=== PATIENT | male | born 1975 | race Caucasian/White ===

== ENCOUNTER 2020-05-05 19:52 | Emergency (ER) | payer OTHER ==
[~2020-05-05] VITALS: Ht 170.2 cm; Wt 86.2 kg
[2020-05-05] MEDS ORDERED: IBUPROFEN 600600 M1 PO (20:49)
[2020-05-05] MEDS ORDERED: APAP W/CODEINE1 TA2 PO (20:49)
[2020-05-05 20:57] VITALS: BP 146/92
== END 2020-05-05 20:57 | disposition home or self-care (01) ==
LOC: M.ERS 19:52
DX: M25.532 Pain in left wrist (principal); Z88.1 Allergy status to other antibiotic agents

== ENCOUNTER 2020-06-01 18:55 | Emergency (ER) | payer OTHER ==
[~2020-06-01] VITALS: Ht 167.6 cm; Wt 97.1 kg
[~2020-06-01 18:55] MED LIST: APAP W/CODEINE1 TA2 PO; IBUPROFEN 600600 M1 PO
[2020-06-01 20:20] LABS: ABSOLUTE LYMPHOCYTES 0.3 thou/uL (0.8-5.3); ABSOLUTE MONOCYTES 0.7 thou/uL (0.0-1.2); ABSOLUTE NEUTROPHILS 4.1 thou/uL (1.6-8.1); BASOPHILS 0.6 %; HEMATOCRIT 43.5 % (42.0-52.0); HEMOGLOBIN 14.7 gm/dL (14.0-18.0); LYMPHOCYTES 5.6 %; MCH 30.7 pg (26.0-34.0); MCHC 33.7 g/dL (28.0-37.0); MCV 91.1 fL (80.0-100.0); MONOCYTES 14.2 %; MPV 9.9 fl. (7.2-11.1); NUCLEATED RBCS 0 /100WBC; PLATELET COUNT* 224 thou/uL (150-400); POLYS 79.6 %; RBC 4.77 mil/uL (4.50-6.00); RDW-CV 13.7 % (10.5-14.5); WBC 5.1 thou/uL (4.0-11.0)
[2020-06-01 20:26] LABS: POTASSIUM 3.3 mmol/L (3.5-5.1)
[2020-06-01] MEDS ORDERED: PROAIR HFA8.5 GM INH (22:14)
[2020-06-01] MEDS ORDERED: ALBUTEROL2.5 MG/31 INH (22:14)
[2020-06-01] MEDS ORDERED: DECADRON6 MG PO (22:14)
[2020-06-01 22:37] VITALS: BP 118/72
--- NOTE | 2020-06-04 10:48 | EKG ---
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[facility] : 1975 Requested By: Melody Stokes Order Number: [id number] MD: Addison Rosas Measurements Intervals [place] Rate: 121 P: 38 CT: 142 QRS: -27 QRSD: 88 T: 5 QT: 307 QTc: 436 Interpretive Statements Sinus tachycardia Abnormal R-wave progression, late transition Inferior infarct, old Baseline wander in lead(s) V6 No previous ECG available for comparison Electronically Signed On 06-04-2020 10:48:18 CDT by Addison Rosas [email or web address] <ELECTRONICALLY SIGNED> By: Addison Rosas MD, FACC 06/04/20 1048 2030 29 Addison Rosas MD, FAC /EPI
== END 2020-06-01 22:37 | disposition home or self-care (01) ==
LOC: M.ERS 18:55
PROVIDERS: Emergency Medicine
DX: U07.1 COVID-19 (principal); F17.210 Nicotine dependence, cigarettes, uncomplicated; Z88.1 Allergy status to other antibiotic agents

== ENCOUNTER 2020-06-07 16:10 | Inpatient (IN) | payer OTHER ==
[~2020-06-07] VITALS: Ht 167.6 cm; Wt 87.8 kg
--- NOTE | ~2020-06-07 | EEG ---
[address] [address] EEG STUDY REPORT Name: JOSE WALTON Hayden Room: [address] IN M.R.#: [id number] Admission: 06/07/20 Attend Phys: Jovita Sandoval Discharge: Date of : 75 Report #: [id number] THIS REPORT FOR: cc: FAM - No family physician/PCP FAM - No family physician/PCP Sherman Bradley MD ~ DOC #: [id number] Sherman Bradley MD DATE OF SERVICE: 06/08/2020 This patient is being evaluated for the possibility of seizure. EEG is done by placing the electrode by standard 10-20 system of electrode placement. Both referential and sequential montages were used for recording. Background activity in this patient's EEG is about 10 Hz and 30 microvolts. Large portion of this EEG was obtained when the patient was asleep and associated with bilateral slowing, vertex sharp waves. Photic stimulation is unremarkable. Throughout the record, no active epileptiform activity was noticed. IMPRESSION: This patient's EEG is unremarkable and does not demonstrate any active epileptiform activity. Sherman Bradley MD PK/ANI By: [id number] Bradley MD /nt
--- NOTE | ~2020-06-07 | CON ---
[address] [address] CONSULTATION Name: SEBASTIÁNJOSE ENNIS Hayden Room: [address] IN M.R.#: [id number] Admission: 06/07/20 Attend Phys: Jovita Sandoval Discharge: Date of : 75 Report #: [id number] THIS REPORT FOR: cc: FAM - No family physician/PCP FAM - No family physician/PCP Sherman Bradley MD ~ DOC #: [id number] Sherman Bradley MD DATE OF CONSULTATION: 06/08/2020 HISTORY OF PRESENT ILLNESS: This is a 44-year-old male patient who was evaluated by me for altered mental status. I had talked to the emergency room physician and saw him briefly and saw him again today and talked to the hospitalist, Dr. Peña. The patient said he had altered mental status yesterday, but that has resolved. He said he is not confused anymore and he is doing fine. He feels back to his baseline and his main problem is COVID infection. REVIEW OF SYSTEMS: Positive for COVID infection. He had some wrist pain. His history is somewhat poor and on many points evasive, but looks like a 14-point review of system is mostly unremarkable. PAST MEDICAL HISTORY: Positive for being COVID positive. FAMILY HISTORY: Unremarkable. SOCIAL HISTORY: He says he smokes, but did not quantify any further. He says he does electric cigarette, often he does it, he did not go into that even when I asked him to. He does not drink alcohol. PHYSICAL EXAMINATION: GENERAL: He is alert. NEUROLOGIC: He is responsive. His can follow simple commands. He knows what month it is, who the president is, who was one before. Cranial nerve examination 2-12 is unremarkable. Neuromuscular examination is unremarkable. He has no meningeal signs. VITAL SIGNS: Blood pressure is 124/77, respirations 14, pulse is 59. LABORATORY DATA: White count is normal. Potassium is a traced low at 3.4, magnesium was not checked. He did have a CTA of the head and neck with perfusion and they were all unremarkable. IMPRESSION AND RECOMMENDATIONS: I am not sure what the etiology of the patient's transient confusion was. This is also part of the history he is somewhat evasive, especially on electronic cigarette. [place] [address] CONSULTATION Name: JOSE WALTON Room: [address] IN [facility]#: [id number] Admission: 06/07/20 Attend Phys: Jovita Sandoval Discharge: Date of : 75 Report #: [id number] proceed with MRI to exclude any other pathology and do some further workup in that regard. He declined any MRI or any further workup in that regard. He is competent to make his decisions and I have talked to him in detail the reason I want to do the test and consequences of not doing it. He does not want to proceed with any further neurological testing like MRIs, etc. and he said he will let me know if he changes his mind or if he has any further spell. In these circumstances, we will sign off and please let us know if there is any question or followup needed. Thank you very much for this referral. Sherman Bradley MD PK/VIS By: 1306 [id number] Bradley MD /nt
[~2020-06-07 16:10] MED LIST changes: +ALBUTEROL2.5 MG/31 INH; +DECADRON6 MG PO; +PROAIR HFA8.5 GM INH
[2020-06-07 16:28] VITALS: BP 116/76
[2020-06-07 17:17] LABS: ABSOLUTE LYMPHOCYTES 0.6 thou/uL (0.8-5.3); ABSOLUTE MONOCYTES 0.5 thou/uL (0.0-1.2); ABSOLUTE NEUTROPHILS 5.8 thou/uL (1.6-8.1); BASOPHILS 0.2 %; HEMATOCRIT 43.2 % (42.0-52.0); HEMOGLOBIN 14.6 gm/dL (14.0-18.0); LYMPHOCYTES 8.9 %; MCH 30.8 pg (26.0-34.0); MCHC 33.9 g/dL (28.0-37.0); MCV 90.9 fL (80.0-100.0); MONOCYTES 7.1 %; MPV 9.5 fl. (7.2-11.1); NUCLEATED RBCS 0 /100WBC; PLATELET COUNT* 217 thou/uL (150-400); POLYS 83.8 %; RBC 4.76 mil/uL (4.50-6.00); RDW-CV 13.9 % (10.5-14.5); WBC 6.9 thou/uL (4.0-11.0)
[2020-06-07 17:24] LABS: CALCIUM 8.3 mg/dL (8.5-10.1); CREATININE 1.2 mg/dL (0.6-1.3); POTASSIUM 3.4 mmol/L (3.5-5.1)
[2020-06-07 17:28] LABS: PROTIME 10.5 Seconds (9.20-11.50)
[2020-06-07 17:29] LABS: ALBUMIN 3.3 g/dL (3.4-5.0); TOTAL BILIRUBIN 0.4 mg/dL (<0.1-1.0)
[2020-06-07 18:23] LABS: ESR (SEDRATE) 20 mm/hr (0-15)
--- NOTE | 2020-06-07 19:11 | NUR ---
PATIENT'S FATHER [phone]
[2020-06-07 21:00] VITALS: BP 119/70
[2020-06-07 21:03] VITALS: BP 105/63
[2020-06-07 22:00] VITALS: BP 98/64
[2020-06-07 23:00] VITALS: BP 104/61
[2020-06-08] VITALS (9 sets, daily range): BP systolic 89–124; BP diastolic 46–80
--- NOTE | 2020-06-08 08:52 | NUR ---
Infection [facility] on 06/01/20.
[2020-06-08 10:59] LABS: URINE BILIRUBIN NEGATIVE (Negative); URINE BLOOD TRACE (Negative); URINE CLARITY CLEAR; URINE COLOR YELLOW; URINE GLUCOSE-RANDOM NEGATIVE (Negative); URINE KETONES NEGATIVE (Negative); URINE LEUKOCYTES-REFLEX NEGATIVE (Negative); URINE NITRITE-REFLEX NEGATIVE (Negative); URINE PROTEIN NEGATIVE (Negative); URINE UROBILINOGEN 0.2 E.U./dl (0.2-1.0)
--- NOTE | 2020-06-08 11:01 | EKG ---
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
[2020-06-08 11:07] LABS: AMP/METHAMP Negative (Negative); BARBITURATES Negative (Negative); BENZODIAZEPINES Negative (Negative); COCAINE Negative (Negative); METHADONE Negative (Negative); OPIATES Negative (Negative); PCP Negative (Negative); THC Negative (Negative)
--- NOTE | 2020-06-08 15:40 | NUR ---
Spoke to patient on the phone due to COVID-19 dx. Introduced role of CM. Patient admitted from PCP office yesterday. Patient woke up feeling disoriented so he went to see his PCP. Per PCP, he was directed to the ED for AMS that resolved upon arrival. Neuro and pulm consulted. Patient does not remember the name of the PCP because he went to his dad's PCP since he didn't have one prior to yesterday. Patient currently on RA and lungs sound clear per nursing. Patient currently uses e-cigarettes and vapes. No DPOA in place at this time and patient not interested in completing paperwork. Patient currently resides at home alone and his support systems are his dad (Ata ParikhItteoo-[phone]) and a co-worker (Alesha Parr). Patient was independent with ADLs prior to admission and was driving and working from home. No hx of DME, BH services, dialysis or infusion therapy. The current plan of care per Dr. Laws is possible dc tomororw if consults sign off and patient continues to do well overnight. Nursing made aware. No current dc needs noted at this time. Nurse to review COVID-19 instructions at tn.
--- NOTE | 2020-06-08 17:18 | NUR ---
AT 1700 PT CALLED THIS RN TO HIS ROOM STATING HE FELT FEVERISH. THIS RN CHECKED HIS AXILLARY TEMP HE WAS DRINKING AN ICED BEVERAGE, TEMP AT THIS TIME WAS 99.4. PT CALLED THIS RN INTO HIS ROOM 15 MINUTES LATER ASKING FOR TEMP TO BE CHECKED AGAIN, AXILARRY TEMP WITH THE SAME THERMOMETER READ 102.1. TYLENOL PROVIDED. ROOM IS VERY WARM AND PT HAS BEEN WRAPPED IN A BLANKET THIS SHIFT. EDUCATION HAS BEEN PROVIDED MULTIPLE TIMES REGARDING THE CONNECTION BETWEEN BUNDLING UP WITH A BLANKET IN A WARM ROOM AND FEVER INCREASING. PT REFUSES TO REMOVE BLANKET AT THIS TIME. THIS RN CONTACTED [employer] TO REQUEST PTS ROOM TEMP BE DECREASED ROOM IS VERY WARM AND PTS TEMP IS INCREASED. PEANUT PICKER PROVIDED A BEDSIDE FAN, PT WILL NOT ALLOW FAN TO BLOW TOWARDS HIM. FAN PLACED IN AN UPWARD MOTION TO FACILITATE A COOLER ATMOSPHERE AROUND PT. WILL CONTINUE TO MONITOR.
[2020-06-08 19:27] LABS: ABSOLUTE LYMPHOCYTES 0.8 thou/uL (0.8-5.3); ABSOLUTE MONOCYTES 0.4 thou/uL (0.0-1.2); ABSOLUTE NEUTROPHILS 6.2 thou/uL (1.6-8.1); BASOPHILS 0.5 %; HEMATOCRIT 42.7 % (42.0-52.0); HEMOGLOBIN 14.4 gm/dL (14.0-18.0); LYMPHOCYTES 10.9 %; MCH 30.6 pg (26.0-34.0); MCHC 33.7 g/dL (28.0-37.0); MCV 90.8 fL (80.0-100.0); MONOCYTES 5.6 %; MPV 8.8 fl. (7.2-11.1); NUCLEATED RBCS 0 /100WBC; PLATELET COUNT* 227 thou/uL (150-400); RBC 4.71 mil/uL (4.50-6.00); RDW-CV 14.1 % (10.5-14.5); WBC 7.4 thou/uL (4.0-11.0)
[2020-06-08 19:37] LABS: CALCIUM 8.2 mg/dL (8.5-10.1); CREATININE 0.9 mg/dL (0.6-1.3); MAGNESIUM 1.9 mg/dL (1.8-2.4); POTASSIUM 3.6 mmol/L (3.5-5.1)
[2020-06-09 03:53] VITALS: BP 109/76
[2020-06-09 04:36] LABS: ABSOLUTE MONOCYTES 0.4 thou/uL (0.0-1.2); ABSOLUTE NEUTROPHILS 5.8 thou/uL (1.6-8.1); BASOPHILS 0.2 %; HEMATOCRIT 42.5 % (42.0-52.0); HEMOGLOBIN 14.1 gm/dL (14.0-18.0); LYMPHOCYTES 13.7 %; MCH 30.4 pg (26.0-34.0); MCHC 33.3 g/dL (28.0-37.0); MCV 91.2 fL (80.0-100.0); MONOCYTES 5.5 %; MPV 8.8 fl. (7.2-11.1); NUCLEATED RBCS 0 /100WBC; PLATELET COUNT* 217 thou/uL (150-400); POLYS 80.6 %; RBC 4.66 mil/uL (4.50-6.00); RDW-CV 13.9 % (10.5-14.5); WBC 7.2 thou/uL (4.0-11.0)
[2020-06-09 04:59] LABS: CALCIUM 8.1 mg/dL (8.5-10.1); CREATININE 1.2 mg/dL (0.6-1.3); POTASSIUM 3.4 mmol/L (3.5-5.1)
[2020-06-09 08:22] LABS: BE -0.1 mmol/L (-2 to +3); PCO2 31.1 mmHg (35.0-45.0); pH 7.475 (7.340-7.450)
[2020-06-09 15:34] VITALS: BP 115/75
[2020-06-10 20:00] VITALS: BP 123/76
[2020-06-10 23:40] VITALS: BP 96/59
[2020-06-11 03:52] VITALS: BP 112/73
[2020-06-11 12:00] VITALS: BP 108/65
--- NOTE | 2020-06-11 12:49 | NUR ---
Doing better. On 4L o2. Possible dc in 1-2 days pending stabalization. Covid positive.
[2020-06-11 15:53] LABS: ABSOLUTE LYMPHOCYTES 0.5 thou/uL (0.8-5.3); ABSOLUTE MONOCYTES 0.3 thou/uL (0.0-1.2); ABSOLUTE NEUTROPHILS 5.9 thou/uL (1.6-8.1); BASOPHILS 0.1 %; HEMATOCRIT 41.8 % (42.0-52.0); HEMOGLOBIN 14.3 gm/dL (14.0-18.0); LYMPHOCYTES 7.8 %; MCH 30.9 pg (26.0-34.0); MCHC 34.1 g/dL (28.0-37.0); MCV 90.5 fL (80.0-100.0); MONOCYTES 3.8 %; MPV 8.6 fl. (7.2-11.1); NUCLEATED RBCS 0 /100WBC; POLYS 88.3 %; RBC 4.62 mil/uL (4.50-6.00); RDW-CV 14.1 % (10.5-14.5); WBC 6.6 thou/uL (4.0-11.0)
[2020-06-11 15:56] LABS: PLATELET COUNT* 310 thou/uL (150-400)
[2020-06-11 16:00] VITALS: BP 122/80
[2020-06-11 16:07] LABS: ALBUMIN 2.7 g/dL (3.4-5.0); CALCIUM 8.3 mg/dL (8.5-10.1); CREATININE 0.9 mg/dL (0.6-1.3); MAGNESIUM 2.2 mg/dL (1.8-2.4); POTASSIUM 4.4 mmol/L (3.5-5.1); TOTAL BILIRUBIN 0.3 mg/dL (<0.1-1.0); TOTAL PROTEIN 6.5 g/dL (6.4-8.2)
[2020-06-11 20:00] VITALS: BP 126/66
[2020-06-12] VITALS (7 sets, daily range): BP systolic 106–121; BP diastolic 67–81
[2020-06-12 06:34] LABS: ABSOLUTE LYMPHOCYTES 1.2 thou/uL (0.8-5.3); ABSOLUTE MONOCYTES 0.5 thou/uL (0.0-1.2); ABSOLUTE NEUTROPHILS 5.1 thou/uL (1.6-8.1); BASOPHILS 0.1 %; EOSINOPHILS 0.1 %; HEMOGLOBIN 13.5 gm/dL (14.0-18.0); LYMPHOCYTES 18.1 %; MCH 29.7 pg (26.0-34.0); MCHC 32.8 g/dL (28.0-37.0); MCV 90.4 fL (80.0-100.0); MONOCYTES 7.5 %; MPV 8.6 fl. (7.2-11.1); NUCLEATED RBCS 0 /100WBC; PLATELET COUNT* 321 thou/uL (150-400); POLYS 74.2 %; RBC 4.54 mil/uL (4.50-6.00); RDW-CV 14.2 % (10.5-14.5); WBC 6.9 thou/uL (4.0-11.0)
[2020-06-12 06:40] LABS: ALBUMIN 2.7 g/dL (3.4-5.0); CALCIUM 8.4 mg/dL (8.5-10.1); CREATININE 0.9 mg/dL (0.6-1.3); POTASSIUM 4.1 mmol/L (3.5-5.1); TOTAL BILIRUBIN 0.5 mg/dL (<0.1-1.0); TOTAL PROTEIN 6.5 g/dL (6.4-8.2)
--- NOTE | 2020-06-12 07:38 | CON ---
[address] [address] CONSULTATION Name: JOSE WALTON Room: [address] IN .R.#: [id number] Admission: 06/07/20 Attend Phys: Jovita Sandoval Discharge: Date of : 75 Report #: [id number] THIS REPORT FOR: cc: FAM - No family physician/PCP FAM - No family physician/PCP Tommy Robin MD ~ DOC #: [id number] Tommy Robin MD DATE OF CONSULTATION: 06/08/2020 CONSULT REQUESTED BY: Jovan Peña MD INDICATION FOR CONSULTATION: COVID-19. HISTORY OF PRESENT ILLNESS: A 44-year-old gentleman who has an extensive history of smoking. He states that he discontinued his regular cigarettes and over the last few months, has only uses electronic cigarettes instead. He does have a CPAP at home for obstructive sleep apnea. He states that he has used inhalers at home in the past; however, he is not aware of a diagnosis of COPD or bronchial asthma. The patient reports having had a positive test for COVID-19 about a week ago. There is a previous record of him being prescribed dexamethasone on 06/01/2020, so the patient does not recall exactly what medications he took, but he may have taken dexamethasone recently as an outpatient. The patient now presented to this hospital with an acute confusional state. The patient is also reported to have had a high-grade fever. The patient was therefore admitted. He has had a CTA head performed. He has also received IV fluids. At the time of my evaluation, the patient is alert, awake and oriented. He was on room air, saturating around 95%. He was afebrile and while his blood pressure was on the lower side, it was around 104/60, in fact was well perfused with this and sitting comfortably in bed. He does report some increase in shortness of breath. He has also had a cough. He reports having brought up small amounts of sputum. He does not know the color of the sputum. He does not have swelling of lower extremities or calf pain. He has had some disturbed sleep at night as well as sleepiness during the day. These complaints are at baseline. The patient at this time was not complaining of any upper respiratory complaints. REVIEW OF SYSTEMS: For 12 points is negative except as mentioned above. PAST MEDICAL HISTORY: Obstructive sleep apnea, he has a CPAP at home; obstructive lung disease, he has used inhalers in the past, I do not have details available; vitiligo; alopecia; skin graft to the right palm. SOCIAL HISTORY: He has an extensive history of smoking in the past[place] [address] CONSULTATION Name: JOSE WALTON Room: [address] IN [facility]#: [id number] Admission: 06/07/20 Attend Phys: Jovita Sandoval Discharge: Date of : 75 Report #: [id number] discontinued regular cigarettes and currently uses electronic cigarettes instead. No known history of heavy alcohol use or illegal drug use. CURRENT MEDICATION: List in [facility] reviewed. Home medication in [facility] reviewed. ALLERGIES: HE REPORTS HAVING HAD AN ALLERGY OR ADVERSE REACTION TO CEPHALEXIN. FAMILY HISTORY: No pertinent family history. PHYSICAL EXAMINATION: GENERAL: He was alert, awake and oriented. VITAL SIGNS: Had a pulse of around 90 and a blood pressure of 104/60. He was saturation 95%. He was not on supplemental oxygen. Respiratory rate was around 14-16. He was afebrile with a temperature of 36.8. There is mild elevation in body mass index to 33.2. HEENT: Head is normocephalic and atraumatic. Pupils are equal and reactive. The mucous membranes are moist. NECK: Does not show raised JVP, asymmetry, mass or lymph nodes. CHEST: Symmetrical expansion on inspection and palpation. On auscultation, chest is clear. HEART: Regular. There is no murmur. ABDOMEN: Soft and nontender. LOWER EXTREMITIES: Show no edema and no calf tenderness. SKIN: Dry and intact. NEUROLOGIC: Moves all extremities bilaterally equally and spontaneously with no focal deficit identified. LABORATORY DATA: Lab work from yesterday is in [facility]. This is reviewed. I have ordered repeat labs now, these are pending. DIAGNOSTIC DATA: CTA head report is in [facility]. This is reviewed. I reviewed the upper chest films, which were incidentally obtained during this study and this was discussed as below. The chest x-rays are in [facility]. These reports as well as films reviewed. Lab work in [facility] reviewed. ASSESSMENT AND PLAN: 1. COVID-19. I initially considered as to whether we should start remdesivir, possibly in combination with dexamethasone. I have discussed this with the patient. The patient; however, states that he wants medications, which are definitely indicated only and does not want any treatment, which could be considered experimental. Based on this, I decided to hold off on these for now. [address] [address] CONSULTATION Name: JOSE WALTON Room: [address] IN [facility]#: [id number] Admission: 06/07/20 Attend Phys: Jovita Sandoval Discharge: Date of : 75 Report #: [id number] In case the patient's condition deteriorates in particular if there is any need for supplemental oxygen, then I would recommend having a very low threshold of starting dexamethasone and remdesivir. There is some recent data from the [place] that inhaled corticosteroids are of benefit in patients with COVID-19 without need for supplemental oxygen and this is now recommended in the [place] on a case by case basis. Based on this, I went ahead and started the patient on budesonide. 2. Pulmonary infiltrates. These are fairly subtle, in fact, they are difficult to see on the chest x-rays; however, on the CTA head, the upper chest is incidentally imaged and this does show infiltrates consistent with COVID-19. Certainly secondary bacterial infection will also be possible. The patient currently is on doxycycline and I agree with the same. If it is feasible, then recommend obtaining a sputum culture. Would also go ahead and obtain a nasal swab for MRSA. 3. Obstructive sleep apnea. We will place him on his home CPAP if here. If it is not, then we will use one of our BiPAPs. 4. Chronic obstructive pulmonary disease. The patient does not have a history of documented chronic obstructive pulmonary disease on the records, but he says he has used inhalers in the past. He also states that he has a history of smoking as above. I am giving him budesonide via nebulizer. We will also give him Brovana and p.r.n. albuterol. 5. Atelectasis prevention. I recommend avoiding sleeping supine. Sleep on sides if sleeping prone is difficult with the CPAP or BiPAP in place. When not on CPAP or BiPAP, I suggest considering prone positioning. I also recommend out of bed to chair. 6. Acute confusional state, likely secondary to COVID-19. No other obvious etiology at this time. 7. Hypokalemia/fluid and electrolytes. Despite the blood pressure being on the lower side, he appears to be well perfused at this time. Therefore, for now, I discontinued IV fluids. His last potassium was 3.4. He likely needs potassium replacement. May also need magnesium replacement. We will go ahead and repeat labs now and if indicated, then we will replace electrolytes per protocol. 8. Evaluation for thromboembolism. Overall, suspicion is low at this time. I did order a D-dimer. If this is elevated and the patient's respiratory status starts to improve, then may consider further workup later. 9. Deep venous thrombosis prophylaxis. He is on Lovenox, will agree with the same. Thanks for this consultation. Tommy Robin MD AP/[place] [address] CONSULTATION Name: JOSE WALTON Room: [address] IN M.R.#: [id number] Admission: 06/07/20 Attend Phys: Jvoita Sandoval Discharge: Date of : 75 Report #: [id number] <ELECTRONICALLY SIGNED> By: Tommy Robin MD 06/12/20 0738 1721 [id number] Robin MD /nt
--- NOTE | 2020-06-12 12:13 | NUR ---
Pt remains anxious. Weaned down to 3L, will need ex ox at dc if continuing to require o2. Anticipate dc in a few days.
[2020-06-13 04:03] VITALS: BP 103/55
[2020-06-13 05:06] LABS: ABSOLUTE BASOPHILS 0.1 thou/uL (0.0-0.2); ABSOLUTE LYMPHOCYTES 1.5 thou/uL (0.8-5.3); ABSOLUTE MONOCYTES 0.6 thou/uL (0.0-1.2); BASOPHILS 0.7 %; EOSINOPHILS 0.3 %; HEMATOCRIT 41.8 % (42.0-52.0); HEMOGLOBIN 13.9 gm/dL (14.0-18.0); LYMPHOCYTES 18.4 %; MCHC 33.2 g/dL (28.0-37.0); MCV 90.2 fL (80.0-100.0); MONOCYTES 7.8 %; MPV 8.3 fl. (7.2-11.1); NUCLEATED RBCS 0 /100WBC; PLATELET COUNT* 313 thou/uL (150-400); POLYS 72.8 %; RBC 4.63 mil/uL (4.50-6.00); RDW-CV 13.8 % (10.5-14.5); WBC 8.3 thou/uL (4.0-11.0)
[2020-06-13 05:18] LABS: ALBUMIN 2.9 g/dL (3.4-5.0); CALCIUM 8.5 mg/dL (8.5-10.1); CREATININE 0.9 mg/dL (0.6-1.3); MAGNESIUM 2.2 mg/dL (1.8-2.4); TOTAL BILIRUBIN 0.5 mg/dL (<0.1-1.0); TOTAL PROTEIN 6.6 g/dL (6.4-8.2)
[2020-06-13 07:55] VITALS: BP 119/66
[2020-06-13 12:00] VITALS: BP 112/62
--- NOTE | 2020-06-13 14:21 | NUR ---
Nutrition: Pt admitted COVID+. He is on 4L O2, MICKEY/CPAP at [facility]. Albumin 2.9, prealb 21.4. Regular diet. Per TERRA Lyman, pt is eating well. Wt: 203#. Meds: remdesivir, steroids. Appears nutritionally stable at this time. Low risk.
--- NOTE | 2020-06-13 14:22 | NUR ---
Pt on RA. Anticipate dc to home tomorrow.
[2020-06-13 16:00] VITALS: BP 109/69
--- NOTE | 2020-06-13 16:56 | NUR ---
PATIENT RESTING IN BED. PATIENT IS UP AD ASTRID IN ROOM. PATIENT WEANED TO ROOM AIR THIS AM, O2 SATS REMAIN 94-95% ON ROOM AIR. PATIENT HAS CPAP WHILE SLEEPING. PATIENT DENIES ANY PAIN. PATIENT HAS DENIED ANY TROUBLE BREATHING TODAY. PATIENT DENIES ANY NEEDS AT THIS TIME. CALL LIGHT WITHIN REACH.
[2020-06-13 19:50] VITALS: BP 110/65
[2020-06-13 23:47] VITALS: BP 109/73
--- NOTE | 2020-06-14 01:46 | NUR ---
ASSUMED CARE OF PT AT 1900. PT IS ALERT AND ORIENTED. VSS. PERRLA. NO COMPLAINTS OF PAIN. PT ISIN SINUS RYRENAM ON THE TELEMETRY. PT IS RESTING COMFORTABLY IN BED. RESPIRATIONS ARE EVEN AND NONLABORED. WILL CONTINUE TO MONITOR PT.
[2020-06-14 03:31] VITALS: BP 107/68
[2020-06-14 04:06] LABS: HEMATOCRIT 43.4 % (42.0-52.0); HEMOGLOBIN 14.3 gm/dL (14.0-18.0); MCH 30.1 pg (26.0-34.0); MCHC 32.9 g/dL (28.0-37.0); MCV 91.6 fL (80.0-100.0); MPV 8.5 fl. (7.2-11.1); RBC 4.73 mil/uL (4.50-6.00); RDW-CV 13.8 % (10.5-14.5); WBC 7.1 thou/uL (4.0-11.0)
[2020-06-14 04:25] LABS: CALCIUM 8.6 mg/dL (8.5-10.1); POTASSIUM 4.3 mmol/L (3.5-5.1)
[2020-06-14 07:35] VITALS: BP 113/76
[2020-06-14] MEDS ORDERED: LEVOFLOXACIN500 MG PO (09:50)
[2020-06-14 11:34] VITALS: BP 113/76
--- NOTE | 2020-06-14 12:15 | NUR ---
Reviewed discharge teaching with patient; verbalized understanding. head screen worker and IV dc'd. Dc'd from unit per WC.
== END 2020-06-14 12:15 | disposition home or self-care (01) | DRG 871 ==
LOC: M.ERS 16:10 → M.TBA-ER 18:07 → M.2W 18:07 → M.ICU 18:07 → M.2W 06-10 17:50
PROVIDERS: Internal Medicine; Internal Medicine Critical Care Medicine; Physician Assistant; ADMIT Internal Medicine; ATTEND Internal Medicine
PROC: XW033E5 Introduction of Remdesivir Anti-infective into Peripheral Vein, Percutaneous Approach, New Technology Group 5 (ICD-10-PCS; principal; 2020-06-09)
PROC: 5A09357 Assistance with Respiratory Ventilation, Less than 24 Consecutive Hours, Continuous Positive Airway Pressure (ICD-10-PCS; principal; 2020-06-09)
PROC: 5A0935A Assistance with Respiratory Ventilation, Less than 24 Consecutive Hours, High Flow/Velocity Cannula (ICD-10-PCS; 2020-06-10)
PROC: 5A0935A Assistance with Respiratory Ventilation, Less than 24 Consecutive Hours, High Flow/Velocity Cannula (ICD-10-PCS; 2020-06-11)
PROC: 5A09357 Assistance with Respiratory Ventilation, Less than 24 Consecutive Hours, Continuous Positive Airway Pressure (ICD-10-PCS; 2020-06-12)
PROC: 5A09357 Assistance with Respiratory Ventilation, Less than 24 Consecutive Hours, Continuous Positive Airway Pressure (ICD-10-PCS; 2020-06-13)
DX: A41.89 Other specified sepsis (principal); U07.1 COVID-19; J96.01 Acute respiratory failure with hypoxia; J12.82 Pneumonia due to coronavirus disease 2019; G93.41 Metabolic encephalopathy; F17.200 Nicotine dependence, unspecified, uncomplicated; G47.33 Obstructive sleep apnea (adult) (pediatric); R41.0 Disorientation, unspecified; Z99.81 Dependence on supplemental oxygen; Z79.899 Other long term (current) drug therapy; Z88.8 Allergy status to other drugs, medicaments and biological substances

== ENCOUNTER 2020-06-25 22:28 | Emergency (ER) | payer OTHER ==
[~2020-06-25] VITALS: Ht 170.2 cm; Wt 92.5 kg
[~2020-06-25 22:28] MED LIST changes: +LEVOFLOXACIN500 MG PO
[2020-06-25] MEDS ORDERED: WELLBUTRIN 75 M75 M1 PO (22:36)
[2020-06-25 23:11] LABS: ABSOLUTE BASOPHILS 0.1 thou/uL (0.0-0.2); ABSOLUTE EOSINOPHILS 0.1 thou/uL (0.0-0.7); ABSOLUTE LYMPHOCYTES 2.1 thou/uL (0.8-5.3); ABSOLUTE MONOCYTES 0.7 thou/uL (0.0-1.2); BASOPHILS 0.9 %; HEMATOCRIT 42.2 % (42.0-52.0); HEMOGLOBIN 14.2 gm/dL (14.0-18.0); MCH 30.9 pg (26.0-34.0); MCHC 33.7 g/dL (28.0-37.0); MCV 91.8 fL (80.0-100.0); MONOCYTES 11.5 %; MPV 9.6 fl. (7.2-11.1); NUCLEATED RBCS 0 /100WBC; PLATELET COUNT* 225 thou/uL (150-400); POLYS 50.6 %; RBC 4.59 mil/uL (4.50-6.00); RDW-CV 13.9 % (10.5-14.5); WBC 5.9 thou/uL (4.0-11.0)
[2020-06-25 23:13] LABS: CALCIUM 8.3 mg/dL (8.5-10.1); POTASSIUM 3.4 mmol/L (3.5-5.1)
[2020-06-25 23:17] LABS: APTT 24.2 Seconds (25.0-31.3); INR 0.9
[2020-06-25 23:18] LABS: ALBUMIN 3.3 g/dL (3.4-5.0); MAGNESIUM 2.2 mg/dL (1.8-2.4); TOTAL BILIRUBIN 0.3 mg/dL (<0.1-1.0); TOTAL PROTEIN 6.7 g/dL (6.4-8.2)
[2020-06-25 23:26] LABS: BE 1.1 mmol/L (-2 to +3); PCO2 34.2 mmHg (35.0-45.0); PO2 88.6 mmHg (75.0-100.0); pH 7.467 (7.340-7.450)
[2020-06-25 23:39] LABS: URINE BILIRUBIN NEGATIVE (Negative); URINE BLOOD NEGATIVE (Negative); URINE CLARITY CLEAR; URINE COLOR YELLOW; URINE GLUCOSE-RANDOM NEGATIVE (Negative); URINE KETONES NEGATIVE (Negative); URINE LEUKOCYTES-REFLEX NEGATIVE (Negative); URINE NITRITE-REFLEX NEGATIVE (Negative); URINE PROTEIN NEGATIVE (Negative); URINE SPECIFIC GRAVITY 1.015 (1.005-1.030); URINE UROBILINOGEN 0.2 E.U./dl (0.2-1.0)
[2020-06-26 01:14] VITALS: BP 115/78
--- NOTE | 2020-06-26 09:41 | EKG ---
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 : 1975 Requested By: Fani Johnston Order Number: [id number] MD: Addison Rosas Measurements Intervals [place] Rate: 83 P: 51 RI: 134 QRS: 6 QRSD: 93 T: 26 QT: 369 QTc: 434 Interpretive Statements Sinus rhythm Compared to ECG 06/07/2020 16:52:28 No significant changes Electronically Signed On 06-26-2020 9:41:14 CDT by Addison Rosas [email or web address] <ELECTRONICALLY SIGNED> By: Addison Rosas MD, [facility] 06/26/20 0941 33 Addison Rosas MD, [facility] /EPI
== END 2020-06-26 01:14 | disposition home or self-care (01) ==
LOC: M.ERS 22:28
PROVIDERS: Personal Emergency Response Attendant
DX: K59.00 Constipation, unspecified (principal); F41.9 Anxiety disorder, unspecified; R06.02 Shortness of breath; R42 Dizziness and giddiness; G47.30 Sleep apnea, unspecified; F17.210 Nicotine dependence, cigarettes, uncomplicated; Z88.1 Allergy status to other antibiotic agents; Z87.01 Personal history of pneumonia (recurrent)

== ENCOUNTER 2020-07-09 13:01 | Emergency (ER) | payer OTHER ==
[~2020-07-09] VITALS: Ht 167.6 cm; Wt 86.6 kg
[~2020-07-09 13:01] MED LIST changes: +WELLBUTRIN 75 M75 M1 PO
[2020-07-09] MEDS ORDERED: SYMBICORT160 MCG/4. INH (13:46)
[2020-07-09 15:19] LABS: ABSOLUTE BASOPHILS 0.1 thou/uL (0.0-0.2); ABSOLUTE EOSINOPHILS 0.1 thou/uL (0.0-0.7); ABSOLUTE LYMPHOCYTES 1.7 thou/uL (0.8-5.3); ABSOLUTE MONOCYTES 0.7 thou/uL (0.0-1.2); ABSOLUTE NEUTROPHILS 3.7 thou/uL (1.6-8.1); HEMATOCRIT 44.2 % (42.0-52.0); HEMOGLOBIN 15.1 gm/dL (14.0-18.0); LYMPHOCYTES 27.4 %; MCHC 34.1 g/dL (28.0-37.0); MCV 90.7 fL (80.0-100.0); MONOCYTES 10.7 %; MPV 9.8 fl. (7.2-11.1); NUCLEATED RBCS 0 /100WBC; PLATELET COUNT* 235 thou/uL (150-400); POLYS 59.9 %; RBC 4.87 mil/uL (4.50-6.00); RDW-CV 14.1 % (10.5-14.5); WBC 6.1 thou/uL (4.0-11.0)
[2020-07-09 15:29] LABS: ANION GAP 7 mmol/L (7-16); BUN 13 mg/dL (7-18); CALCIUM 8.8 mg/dL (8.5-10.1); CHLORIDE 106 mmol/L (98-107); CO2 29 mmol/L (21-32); CREATININE 1.1 mg/dL (0.6-1.3); GLUCOSE 91 mg/dL (70-99); POTASSIUM 4.4 mmol/L (3.5-5.1); SODIUM 142 mmol/L (136-145)
[2020-07-09 15:40] LABS: ALBUMIN 3.7 g/dL (3.4-5.0); ALKALINE PHOSPHATASE 118 U/L (46-116); MAGNESIUM 2.4 mg/dL (1.8-2.4); NT-PRO BRAIN NAT PEPTIDE < 5 pg/mL (<300); SGOT 18 U/L (15-37); SGPT 24 U/L (30-65); TOTAL BILIRUBIN 0.3 mg/dL (<0.1-1.0); TOTAL PROTEIN 6.8 g/dL (6.4-8.2)
[2020-07-09 17:26] VITALS: BP 142/70
--- NOTE | 2020-07-10 12:10 | EKG ---
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1975 Requested By: Franny Cleary Order Number: [id number] MD: Maxi Cedeno Measurements Intervals [place] Rate: 71 P: 40 CO: 135 QRS: -1 QRSD: 88 T: 4 QT: 366 QTc: 398 Interpretive Statements Sinus rhythm Consider inferior infarct Compared to ECG 06/25/2020 22:34:22 Myocardial infarct finding now present Electronically Signed On 07-10-2020 12:10:08 CDT by Maxi Cedeno [email or web address] <ELECTRONICALLY SIGNED> By: Maxi Cedeno MD, FAC 07/10/20 1210 1507 1507 Maxi Cedeno MD, [facility] /EPI
== END 2020-07-09 17:26 | disposition home or self-care (01) ==
LOC: M.ERS 13:01
PROVIDERS: Nurse Practitioner Family
DX: M54.6 Pain in thoracic spine (principal); R09.1 Pleurisy; F17.210 Nicotine dependence, cigarettes, uncomplicated; Z79.899 Other long term (current) drug therapy; Z88.1 Allergy status to other antibiotic agents

== ENCOUNTER → 2020-07-27 | Outpatient (CLI) | payer OTHER ==
[~2020-07-27] MED LIST changes: +SYMBICORT160 MCG/4. INH
== END ==
LOC: M.ULTRA 08:00
PROVIDERS: ATTEND Family Medicine
DX: R16.0 Hepatomegaly, not elsewhere classified (principal); R74.8 Abnormal levels of other serum enzymes